=== PATIENT | female | born 1960 | race Caucasian/White ===

== ENCOUNTER 2017-05-11 13:36 | Inpatient (IN) ==
[2017-05-11] MEDS ORDERED: Ipratropium/Albuterol Neb 3 ML IH ONE (14:00)
[2017-05-11] MEDS ORDERED: methylPREDNISolone 125 MG/2 ML VIAL IVP ONE (14:03)
[2017-05-11 14:25] LABS: Basophils % 0.2 %; Hematocrit 41.2 % (35.3-44.9); Hemoglobin 13.6 g/dL (11.5-15.4); Immature Granulocytes % 0.4 % (0-4); Lymphocytes # 0.4 K/mcL (0.6-4.6); Lymphocytes % 4.7 %; Mean Corpuscular Hemoglobin 30.6 pg (28.0-33.3); Mean Corpuscular Volume 92.6 fL (83.0-100.0); Mean Platelet Volume 10.5 fL (9.4-12.4); Monocytes # 0.4 K/mcL (0.0-1.3); Monocytes % 3.9 %; Neutrophils # 8.1 K/mcL (1.6-8.9); Nucleated Red Blood Cells 0.2 /100 WBC (0); Platelet Count 162 K/mcL (140-400); Red Blood Count 4.45 M/mcL (3.82-4.97); Red Cell Distribution Width 14.2 % (11.5-14.5); Segmented Neutrophils % 90.8 %
--- NOTE | 2017-05-11 14:27 | Emergency Department Note ---
Disposition Clinical Impression: Hypoxia Community acquired pneumonia Qualifiers: Laterality: left Lung location: lower lobe of lung Qualified Code(s): J18.1 - Lobar pneumonia, unspecified organism Asthma exacerbation Qualifiers: Asthma severity: unspecified severity Asthma persistence: unspecified Qualified Code(s): J45.901 - Unspecified asthma with (acute) exacerbation Disposition: Admitted As Inpatient Condition: Good SOB HPI - General Chief Complaint: ED Shortness of Breath/Dyspnea Stated Complaint: asthma-RADHA Time Seen by Provider: 05/11/17 13:43 Source: patient Mode of arrival: private vehicle Limitations: no limitations Nursing Notes Reviewed: Yes Vital Signs Reviewed: Yes - History of Present Illness 56-year-old female history of asthma who takes albuterol as well as Symbicort daily who presents to the ER due to shortness of breath and cough. Patient reports symptom onset roughly 2 days ago. States she has been using her inhalers more frequently. She was noted to be hypoxic at home so came in for evaluation. Denies a prior history of admission for her asthma. No history of DVT or PE. No chest pain during this time. Has had a productive cough. No other complaints. Pt Subjective Complaint: shortness of breath, cough Onset (ago): day(s) Context: recent illness Severity: severe Consistency/Duration: constant Improves with: nothing Worsens with: nothing Known history of: asthma Associated symptoms: Reports: fever, cough, wheezing, sputum production. Denies : chest pain Treatment prior to arrival: none Cough present: Yes Cough Description: Involuntary Cough Frequency: Intermittent Sputum production: No Sputum Amount: None - Related Data Home oxygen amount: none Home Medications Medication Instructions Recorded Confirmed Budesonide/Formoterol 160/4.5 1 puff IH BIDR 05/11/17 05/11/17 [Symbicort 160/4.5] Levalbuterol Tartrate 2 puff IH Q4-6H PRN 05/11/17 05/11/17 [Levalbuterol Tartrate Hfa] Lisinopril [Lisinopril] 2.5 mg PO DAILY 05/11/17 05/11/17 Pravastatin Sodium [Pravastatin 10 mg PO DAILY 05/11/17 05/11/17 Sodium] metFORMIN [Glucophage] 500 mg PO BID 05/11/17 05/11/17 Allergies Allergy/AdvReac Type Severity Reaction Status Date / Time aspirin Allergy Difficulty Verified 05/11/17 13:38 Breathing All systems ED: reviewed and negative except as stated. Constitutional: Reports: fever Cardiovascular: Denies: chest pain Respiratory: Reports: cough, dyspnea, sputum production Gastrointestinal: Denies: nausea, vomiting, diarrhea Past Medical History - Past Medical History Attestation: Yes The following information was validated with the patient. Source: patient Medical history: Reports: asthma, diabetes, hypertension Psychiatric history: Reports: no psych history - Social History Smoking Status: Never smoker Smokeless Tobacco Status: No Alcohol use: Reports: none Drug use: Reports: none Physical Exam - General Limitations: no limitations General appearance: alert, in distress - Head Head exam: atraumatic - Eye Eye exam: Present: normal appearance - ENT ENT exam: normal exam - Neck Neck exam: Present: normal inspection, full ROM - Chest Chest inspection: Present: normal inspection, symmetric chest wall rise - Respiratory Respiratory exam: Present: respiratory distress, wheezes (Diffuse end expiratory wheezing with prolonged expiratory phase) - Cardiovascular Cardiovascular exam: Present: normal rhythm, tachycardia, normal heart sounds - Abdominal Exam Abdominal exam: Present: soft, Non-Tender. Absent: tenderness - Extremities Exam Extremities exam: Present: normal inspection, full ROM - Expanded Upper Extremity Exam Shoulder exam: Present: normal inspection, full ROM Arm exam: Present: normal inspection, full ROM Elbow exam: Present: normal inspection, full ROM Forearm/Wrist exam: Present: normal inspection, full ROM Hand exam: Present: normal inspection, full ROM - Expanded Lower Extremity Exam Hip/Pelvis exam: Present: normal inspection, full ROM Upper leg exam: Present: normal inspection, full ROM Knee exam: Present: normal inspection, full ROM Lower leg exam: Present: normal inspection, full ROM Ankle exam: Present: normal inspection, full ROM Foot/toe exam: Present: normal inspection, full ROM - Skin Skin exam: Present: warm, dry, intact Course Course Narrative: Patient seen and examined. Noted to be in respiratory distress and hypoxic. Respiratory therapy called for DuoNeb treatments. I placed the patient on a nonrebreather. Saturations are slowly improving. We will get an EKG, chest x- ray as well as labs including troponin. - Reevaluation(s) Reevaluation #1: Patient continued desaturations after nebulizer treatments. BiPAP ordered. Reevaluation #2: Patient doing better on BiPAP. Currently 97% with an FiO2 of 85%. Discussed findings of imaging. Patient agreeable to staying in the hospital. Vital Signs Temperature 102.9 F H 05/11/17 13:38 Pulse Rate 122 05/11/17 13:38 Respiratory Rate 20 05/11/17 13:38 Blood Pressure 132/72 05/11/17 13:38 O2 Sat by Pulse Oximetry 65 05/11/17 13:38 Temperature 98.8 F 05/11/17 19:32 Pulse Rate 81 05/11/17 19:32 Respiratory Rate 17 05/11/17 19:32 Blood Pressure 110/64 05/11/17 19:32 O2 Sat by Pulse Oximetry 98 05/11/17 19:32 Oxygen Delivery Oxygen Delivery Bipap Shortness of Breath/Dyspnea - MDM Narrative Medical decision making narrative: 56-year-old female presents to the ER due to shortness of breath and cough for 2 days in duration. History of asthma in the past. Noted to be hypoxic upon arrival. She was placed on a nonrebreather with improvement to 91%. EKG shows sinus tachycardia. Chest x-ray with left lower lobe pneumonia. Patient given DuoNeb treatments and Solu-Medrol. Also placed on BiPAP with improvement of her oxygen saturation. She is treated with Rocephin and Zithromax. She is accepted to the hospitalist service for [facility] pneumonia, asthma exacerbation and hypoxia. - Lab Data Lab results reviewed: Yes I reviewed the patient's lab results. Result diagrams: 05/11/17 14:15 05/11/17 14:15 Lab Results 05/11/17 05/11/17 05/11/17 Range/Units 14:15 14:15 14:15 WBC 8.9 (4.3-11.1) K/mcL RBC 4.45 (3.82-4.97) M/mcL Hgb 13.6 (11.5-15.4) g/dL Hct 41.2 (35.3-44.9) % MCV 92.6 (83.0-100.0) fL MCH 30.6 (28.0-33.3) pg MCHC 33.0 (31.6-35.5) g/dL RDW 14.2 (11.5-14.5) % Plt Count 162 (140-400) K/mcL MPV 10.5 (9.4-12.4) fL Immature Gran % 0.4 (0-4) % Seg Neutrophils % 90.8 % Lymphocytes % 4.7 % Monocytes % 3.9 % Eosinophils % 0.0 % Basophils % 0.2 % Neutrophils # 8.1 (1.6-8.9) K/mcL Lymphocytes # 0.4 L (0.6-4.6) K/mcL Monocytes # 0.4 (0.0-1.3) K/mcL Eosinophils # 0.0 (0.0-0.6) K/mcL Basophils # 0.0 (0.0-0.2) K/mcL Nucleated RBCs/100 WBC 0.2 H (0) /100 WBC Sample Site ABG pH (7.32-7.45) pH Units ABG pCO2 (35-45) mmHg ABG pO2 (85-104) mmHg ABG HCO3 (21-27) mEq/L ABG Total CO2 (20-26) mEq/L ABG O2 Saturation (95-98) % ABG Base Excess (-2 to 3) mEq/L Fan Test Respiration Rate O2 Delivery Device Inspired O2 (1-15=lpm [id number]=%) Sodium 134 L (136-145) mEq/L Potassium 4.2 (3.5-5.1) mEq/L Chloride 98 (98-107) mEq/L Carbon Dioxide 31 H (23-29) mEq/L BUN 14 (6-20) mg/dL Creatinine 0.91 (0.60-1.20) mg/dL Est GFR ( Amer) > 60 (> 60) Est GFR (Non-Af Amer) > 60 (> 60) BUN/Creatinine Ratio 15 (6-26) Glucose 195 H (70-105) mg/dL Calculated Osmolality 284 (280-300) Calcium 8.6 (8.6-10.3) mg/dL Troponin I < 0.03 (< 0.04) ng/mL B-Natriuretic Peptide (Less than 100) pg/mL 05/11/17 05/11/17 Range/Units 14:15 18:30 WBC (4.3-11.1) K/mcL RBC (3.82-4.97) M/mcL Hgb (11.5-15.4) g/dL Hct (35.3-44.9) % MCV (83.0-100.0) fL MCH (28.0-33.3) pg MCHC (31.6-35.5) g/dL RDW (11.5-14.5) % Plt Count (140-400) K/mcL MPV (9.4-12.4) fL Immature Gran % (0-4) % Seg Neutrophils % % Lymphocytes % % Monocytes % % Eosinophils % % Basophils % % Neutrophils # (1.6-8.9) K/mcL Lymphocytes # (0.6-4.6) K/mcL Monocytes # (0.0-1.3) K/mcL Eosinophils # (0.0-0.6) K/mcL Basophils # (0.0-0.2) K/mcL Nucleated RBCs/100 WBC (0) /100 WBC Sample Site L Radial ABG pH 7.30 L (7.32-7.45) pH Units ABG pCO2 62 H (35-45) mmHg ABG pO2 109 H (85-104) mmHg ABG HCO3 31 H (21-27) mEq/L ABG Total CO2 33 H (20-26) mEq/L ABG O2 Saturation 98 (95-98) % ABG Base Excess 3 (-2 to 3) mEq/L Fan Test Positive Respiration Rate 8 O2 Delivery Device BiPAP Inspired O2 60.0 (1-15=lpm [id number]=%) Sodium (136-145) mEq/L Potassium (3.5-5.1) mEq/L Chloride (98-107) mEq/L Carbon Dioxide (23-29) mEq/L BUN (6-20) mg/dL Creatinine (0.60-1.20) mg/dL Est GFR ( Amer) (> 60) Est GFR (Non-Af Amer) (> 60) BUN/Creatinine Ratio (6-26) Glucose (70-105) mg/dL Calculated Osmolality (280-300) Calcium (8.6-10.3) mg/dL Troponin I (< 0.04) ng/mL B-Natriuretic Peptide 69 (Less than 100) pg/mL - Radiology Data Radiology results reviewed: Yes I reviewed the patient's radiology results. Chest X-Ray 05/11/17 14:04 IMPRESSION: Consolidated pneumonia in the left base. RECOMMENDATION: Follow-up until resolution is recommended. D/ / Daren iDaz MD / Daren Diaz MD Interpreting Provider: Daren Diaz MD - EKG Data EKG attestation: Yes I reviewed and interpreted this EKG. EKG results narrative: EKG demonstrates sinus tachycardia with rate of 109. Normal axis. Normal intervals. Poor R-wave progression. No gross ST elevations or depressions. ischemic findings. S.B.A.R. - S.B.A.R. Situation: Demographics, MOA Background: Presenting Complaint, Relevant PMH, Meds, & Allergies Assessment: Vital Signs, Course and respsone to treatment, Exam Concerns, Patient/Family Expectation Recommendation: Barrier(s) to disposition, Recommendation based on pending studies, treatments, or consults S.B.A.RPuneet Report Given to: Dr. Dot Traore Repor Time: 17:51 (Request ABG) Attestation Statement - Attestation Attestation: I examined this patient and my medical decision-making was reviewed with the Resident Physician. I agree with the documented findings, disposition and treatment plan as described except to the extent set forth below. 56-year-old female presents because of difficulty breathing and fever. She says symptoms evolving for the past 2 days including dyspnea, fever and cough productive of thick green sputum. No complains of pain. No abdominal pain or vomiting. No dysuria, hematuria. No joint pain or myalgias. No dysuria or no recent known ill exposures. Obese female in moderate respiratory distress. She is tachypneic and hypoxic. Oropharynx is clear moist membranes are dry. Neck is supple trachea midline. Chest with markedly diminished breath sounds throughout with biphasic wheezes in all lung pérez. Cardiac exam is tachycardic, regular. Abdomen soft, nondistended nontender. She weighs warm and dry with bilateral edema but no calf tenderness. She required high flow supplemental oxygen to maintain oxygen saturation 91%. She was given sequential DuoNeb treatments with some improvement. She received IV Solu-Medrol and a dose of IV magnesium with further improvement but still can required high flow oxygen. She was subsequently started on BiPAP for supportive care. On BiPAP with 60% FiO2 her pH is 7.30 with a PCO2 of 62. Chest x-ray was consistent with a dense left lower lobe pneumonia. She was started on Rocephin and Zithromax for community where pneumonia. She will be admitted for ongoing treatment and supportive care The high probability of a clinically significant, sudden or life threatening deterioration of the [cardiopulmonary] system(s) required my full and direct attention, intervention and personal management. The aggregate critical care time was [40] minutes. This time is in addition to time spent performing reported procedures but includes the following: [x] Data Review and interpretation [x] Patient assessment and monitoring of vital signs [x] Documentation [x] Medication orders and management
[2017-05-11 14:38] LABS: BUN/Creatinine Ratio 15 (6-26); Blood Urea Nitrogen 14 mg/dL (6-20); Calcium 8.6 mg/dL (8.6-10.3); Carbon Dioxide 31 mEq/L (23-29); Chloride 98 mEq/L (98-107); Glucose 195 mg/dL (70-105); Osmolality,Calculated 284 (280-300); Potassium 4.2 mEq/L (3.5-5.1); Sodium 134 mEq/L (136-145); eGFR For African Americans > 60 (> 60); eGFR For Non-African Americans > 60 (> 60)
[2017-05-11] MEDS ORDERED: Azithromycin 500 MG in D5% in Water 250 ML IVPB ONE (16:32)
[2017-05-11] MEDS ORDERED: cefTRIAXone 1,000 MG in Water for inj. (sterile) 20 ML 10 ML IVP ONE (16:32)
[2017-05-11] MEDS ORDERED: 0.9 % Sodium Chloride 1,000 ML IVC ONE (17:52)
[2017-05-11 18:33] LABS: ABG Base Excess 3 mEq/L (-2 to 3); ABG HCO3 31 mEq/L (21-27); ABG Oxygen Saturation 98 % (95-98); ABG PCO2 62 mmHg (35-45); ABG PO2 109 mmHg (85-104); ABG TCO2 33 mEq/L (20-26); Blood Gas Respiration Rate 8
[2017-05-11] MEDS ORDERED: Naloxone 0.4 MG/ML INJ IVP PRN (21:18)
[2017-05-11] MEDS ORDERED: D5% in Water 1,000 ML IVC PRN (21:18)
[2017-05-11] MEDS ORDERED: Dextrose Gel 15 GM/37.5 ML TUBE PO PRN ×2 (21:18)
[2017-05-11] MEDS ORDERED: *HR* Dextrose 50 % in Water (Syg) 50 ML SYRINGE IVP PRN (21:18)
--- NOTE | 2017-05-11 21:23 | Internal Med History&Physical ---
<Lauri Mancilla J - Last Filed: 05/11/17 22:41> Date of Encounter: 05/11/17 Time of Encounter: 21:21 Assessment and Plan (1) Community acquired pneumonia Current visit: Yes Status: Acute She presented today with severe hypoxia with his PO2 of 65% and dyspnea. The Patient is a nonsmoker with a history of asthma. She reports that for the last couple of days has been feeling very fatigued and short of breath. She reports that yesterday she was severely dyspneic with exertion and her cough became more coarse with increased sputum production. He denies any recent hospitalizations or antibiotics within the last 90 days. Chest x-ray reveals left lobe consolidation consistent with PNA. She is being admitted as inpatient for treatment of CAP. Currently she is resting comfortably on BiPAP and states that she does not feel short of breath that she did upon arrival. She is currently on 60% FiO2 and maintaining O2 saturations greater than 92%. Initial ABG upon arrival showed respiratory acidosis with hypercapnia. - Send urine Legionella antigen - Aerosols q 4 hr and PRN SOB - Solu-medrol 40 mg IV q 6 hr - O2 to keep SpO2 higher than 92% - CBCD, BMP in AM - Sputum Gram stain, C+S - Tylenol 650 mg PO q 4-6 hr PRN pain/fever - Heparin 5000 U SQ BID - Azithromycin 500 IV piggyback daily, ceftriaxone 1 g IV piggyback daily -Wean patient to nasal cannula as clinically appropriate - Obtain ABG Qualifiers: Laterality: left Lung location: lower lobe of lung Qualified Code(s): J18.1 - Lobar pneumonia, unspecified organism (2) Asthma exacerbation Current visit: Yes Status: Acute Presents today with severe hypoxia and dyspnea, secondary to pneumonia. Pulmonary assessment the patient has rhonchi throughout bilateral bases as well as inspiratory and expiratory wheezing. While in the emergency department she received duonebs, IV steroids and was placed on a BiPAP at 60% FiO2. Respiratory status seems to have improved. Patient remains on BiPAP and is resting comfortably at this time and tolerating the BiPAP well. - Aerosols q 4 hr and PRN SOB - Solu-medrol 40 mg IV q 6 hr - O2 to keep SpO2 higher than 92% - CBCD, BMP in AM - Sputum Gram stain, C+S - Tylenol 650 mg PO q 4-6 hr PRN pain/fever - Heparin 5000 U SQ BID - Azithromycin 500 IV piggyback daily, ceftriaxone 1 g IV piggyback daily -Wean patient to nasal cannula as clinically appropriate Qualifiers: Asthma severity: unspecified severity Asthma persistence: unspecified Qualified Code(s): J45.901 - Unspecified asthma with (acute) exacerbation (3) Acute respiratory failure with hypercapnia Current visit: Yes Status: Acute Acute respiratory failure secondary to pneumonia. Patient was hypoxic and also experiencing an acute exacerbation of asthma. ABG revealed respiratory acidosis and hypercapnia. (4) Hypoxia Current visit: Yes Status: Acute Patient arrived to [facility] with severe hypoxia with an SPO2 of 65% and dyspnea. She was immediately placed on a nonrebreather with SPO2 improving to 94% on 100 % oxygen. Patient has a history of asthma and appears to have been in an acute exacerbation, chest x-ray was obtained and revealed a consolidation in the left lung base. See plan above (5) Diabetes Current visit: Yes Status: Acute Discontinue oral hypoglycemics while inpatient and start patient on low sliding scale insulin coverage with before meals and at bedtime Accu-Cheks and diabetic/ cardiac diet Qualifiers: Diabetes mellitus type: type 2 Diabetes mellitus complication status: without complication Diabetes mellitus intermodal customer service insulin use: without retirement use Qualified Code(s): E11.9 - Type 2 diabetes mellitus without complications (6) DVT prophylaxis Current visit: Yes Status: Acute Heparin 5000 units subcutaneous twice a day Internal Medicine - H&P: HPI Chief complaint: dyspnea, hypoxia Admitted From: Home Plans for Post Hospital Care: Home History of present illness: Ms. Gill is a 56 year old female with a PMH of HTN, asthma and DM. She presents to [facility] today d/t dyspnea, and a productive cough. She reports the onset of symptoms of approximately 2-days ago. She admits to fevers, a course cough with a large amount of dark sputum. Additionally, she reports that she has had to increase her inhaler use. Upon arrival to the ED she was hypoxic with an SPO2 of 65% and required a 100% NRB to maintain O2 saturations greater than 92%. She was found to be in respiratory acidosis and hypercapnea and was placed on a Bipap. CXR shows a LLL consolidation consistent with PNA. Past Med Surg Social Fam HX - Past Medical History Medical history: asthma, diabetes, hyperlipidemia, hypertension Psychiatric history: no psych history - Past Surgical History Surgical History: , cholecystectomy - Social History Smoking Status: Never smoker Smokeless Tobacco Status: No Alcohol use: none Drug use: none - Family History Mother Hx Family Endocrine Disorder: Yes (DM) Brother Hx Family Cancer: Yes (LEUKEMIA) Internal Medicine - H&P: Meds Budesonide/Formoterol 160/4.5 [Symbicort 160/4.5] 1 puff IH BIDR 05/11/17 [ History] Levalbuterol Tartrate [Levalbuterol Tartrate Hfa] 2 puff IH Q4-6H PRN 05/11/17 [ History] Lisinopril [Lisinopril] 2.5 mg PO DAILY 05/11/17 [History] Pravastatin Sodium [Pravastatin Sodium] 10 mg PO DAILY 05/11/17 [History] metFORMIN [Glucophage] 500 mg PO BID 05/11/17 [History] 3 Allergy/AdvReac Type Severity Reaction Status Date / Time aspirin Allergy Difficulty Verified 05/11/17 13:38 Breathing All Systems PM: A 10-system review of systems was performed and is negative for pertinent findings except as documented above in the HPI. Review of systems: REVIEW OF SYSTEMS GENERAL: Negative for any nausea, vomiting, fevers, or weight loss. Positive for fevers NEUROLOGIC: Negative for any blurry vision, blind spots, double vision, facial asymmetry, dysphagia, dysarthria, hemiparesis, hemisensory deficits, vertigo, ataxia. HEENT: Negative for any head trauma, neck trauma, neck stiffness, photophobia, phonophobia, sinusitis, rhinitis. CARDIAC: Negative for any chest pain, paroxysmal nocturnal dyspnea, peripheral edema. PULMONARY: Negative for COPD. Positive for a productive course cough, dyspnea , wheezing and ashthma exacerbation GASTROINTESTINAL: Negative for any abdominal pain, nausea, vomiting, bright red blood per rectum, melena. GENITOURINARY: Negative for any dysuria, hematuria, incontinence. INTEGUMENTARY: Negative for any rashes, cuts, insect bites. RHEUMATOLOGIC: Negative for any joint pains, photosensitive rashes, history of vasculitis or kidney problems. HEMATOLOGIC: Negative for any abnormal bruising, frequent infections or bleeding. - Constitutional Vitals: Temp Pulse Resp BP Pulse Ox 98.8 F 81 17 110/64 98 05/11/17 19:32 05/11/17 19:32 05/11/17 19:32 05/11/17 19:32 05/11/17 20:24 General appearance: Present: cooperative, mild distress, A&O X 3, answers questions appropriately - Head Head exam: Present: atraumatic, normocephalic - Eye Eye exam: Present: PERRL, conjuntiva pink, sclera anicteric Pupils: Present: PERRL - Neck Neck exam general surgery: Present: supple, trachea midline. Absent: lymphadenopathy - Respiratory Respiratory exam: Present: decreased breath sounds, prolonged expiratory phase, respiratory distress (MILD), rhonchi, wheezes (I&E). Absent: chest wall tenderness - Cardiovascular Cardiovascular exam: Present: RRR, +S1, +S2. Absent: bradycardia, diastolic murmur, gallop, irregular rhythm, JVD, rubs, systolic murmur, tachycardia - GI/Abdominal GI/Abdominal exam: Present: normal bowel sounds, soft, no peritoneal signs. Absent: distended, tenderness - Extremities Exam Extremities exam: Present: warm, radial pulses palpable and symmetrical. Absent : calf tenderness, cyanotic, pedal edema - Neurological Exam Neurological exam: Present: normal gait, oriented X3 - Skin Skin exam: Present: dry, intact Internal Med - H&P Results - Labs CBC & Chem 7: 05/11/17 14:15 05/11/17 14:15 - Diagnostic Studies Chest x-ray Status: image reviewed by me Additional comments: Consolidation in Left lung base <Addie Baca - Last Filed: 05/12/17 05:53> Date of Encounter: 05/11/17 Time of Encounter: 23:05 Internal Medicine - H&P: HPI History of present illness: Ms. Gill is a 56 year old female All Systems PM: A 10-system review of systems was performed and is negative for pertinent findings except as documented above in the HPI. - Constitutional Vitals: Temp Pulse Resp BP Pulse Ox 97.9 F 70 16 130/75 91 05/12/17 00:00 05/12/17 00:00 05/12/17 00:17 05/12/17 00:00 05/12/17 00:17 Internal Med - H&P Results - Labs CBC & Chem 7: 05/12/17 04:13 05/12/17 04:13 Labs: Short CBC 05/12/17 Range/Units 04:13 WBC 11.6 H (4.3-11.1) K/mcL Hgb 12.4 (11.5-15.4) g/dL Hct 38.7 (35.3-44.9) % Plt Count 124 L (140-400) K/mcL Neutrophils # 10.9 H (1.6-8.9) K/mcL BMP 05/12/17 04:13 Sodium 135 L Potassium 4.7 Chloride 99 Carbon Dioxide 33 H BUN 12 Creatinine 0.90 Glucose 211 H Calcium 8.5 L - ABG Interpretation ABG results: 05/11/17 05/12/17 23:27 05:14 ABG pH 7.24 L 7.32 ABG pCO2 76 H* 65 H ABG pO2 155 H D 98 D ABG HCO3 32 H 34 H ABG Total CO2 35 H 36 H ABG O2 Saturation 99 H 97 ABG Base Excess 2 5 H - Attending Attestation Patient is a 56y/o female admitted for acute respiratory failure secondary to pneumonia and asthma exacerbation. Patient was found to be Inflluenza and Coronavirus positive. Reported of symptoms starting two days prior to her hospitalization. Pt noted to have worsening ABG. She was started on Tamiflu, Vanco, and Zosyn given severe respiratory distress continue bipap support f/u blood cultures will repeat ABG in am Patient was independently seen and examined at bedside. Case was discussed with ZAID Mancilla, I agree with his documented findings, assessment, and plan except as listed above.
[2017-05-11 21:49] LABS: Adenovirus Not Detected (Not Detect); Bordetella Pertussis Not Detected (Not Detect); Chlamydophila pneumoniae Not Detected (Not Detect); Coronavirus 229E Not Detected (Not Detect); Coronavirus HKU1 ***DETECTED*** (Not Detect); Coronavirus NL63 Not Detected (Not Detect); Coronavirus OC43 Not Detected (Not Detect); Human Metapneumovirus Not Detected (Not Detect); Human Rhinovirus/Enterovirus Not Detected (Not Detect); Influenza A Subtype 2009 H1 Not Detected (Not Detect); Influenza A Untypeable Not Detected (Not Detect); Influenza B Not Detected (Not Detect); Mycoplasma pneumoniae Not Detected (Not Detect); Parainfluenza Virus 1 Not Detected (Not Detect); Parainfluenza Virus 2 Not Detected (Not Detect); Parainfluenza Virus 3 Not Detected (Not Detect); Parainfluenza Virus 4 Not Detected (Not Detect); Respiratory Syncytial Virus Not Detected (Not Detect)
[2017-05-11] MEDS ORDERED: Acetaminophen 325 MG TABLET PO PRN (22:03)
[2017-05-11] MEDS: Ipratropium/Albuterol Neb 3 ML IH SCH (23:22)
[2017-05-11] MEDS: Insulin LISPRO 300 UNITS/3 ML VIAL SQ SCH (23:29)
[2017-05-11] MEDS: methylPREDNISolone 125 MG/2 ML VIAL IVP SCH (23:30)
[2017-05-11 23:33] LABS: ABG Base Excess 2 mEq/L (-2 to 3); ABG HCO3 32 mEq/L (21-27); ABG Oxygen Saturation 99 % (95-98); ABG PCO2 76 mmHg (35-45); ABG PH 7.24 pH Units (7.32-7.45); ABG PO2 155 mmHg (85-104); ABG TCO2 35 mEq/L (20-26)
[2017-05-12] MEDS: 0.9 % Sodium Chloride 1,000 ML IVC SCH ×2 (00:38→17:51)
[2017-05-12] MEDS ORDERED: Vancomycin 1,500 MG in D5% in Water 250 ML IVPB ONE (01:00)
[2017-05-12] MEDS ORDERED: Vancomycin 1,000 MG in D5% in Water 250 ML IVPB SCH ×2 (01:00→13:00)
[2017-05-12] MEDS: Piperacillin/Tazobactam 3.375 GM/200 ML BAG IVPB SCH ×2 (01:19→08:38)
[2017-05-12] MEDS: Ipratropium/Albuterol Neb 3 ML IH SCH ×6 (03:29→23:31)
[2017-05-12 05:11] LABS: Hematocrit 38.7 % (35.3-44.9); Hemoglobin 12.4 g/dL (11.5-15.4); Mean Corpuscular Hemoglobin 30.4 pg (28.0-33.3); Mean Corpuscular Volume 94.9 fL (83.0-100.0); Mean Platelet Volume 11.1 fL (9.4-12.4); Platelet Count 124 K/mcL (140-400); Red Blood Count 4.08 M/mcL (3.82-4.97); Red Cell Distribution Width 14.4 % (11.5-14.5)
[2017-05-12 05:18] LABS: ABG Base Excess 5 mEq/L (-2 to 3); ABG HCO3 34 mEq/L (21-27); ABG Oxygen Saturation 97 % (95-98); ABG PCO2 65 mmHg (35-45); ABG PH 7.32 pH Units (7.32-7.45); ABG PO2 98 mmHg (85-104); ABG TCO2 36 mEq/L (20-26); Blood Gas Modality BiLevel
[2017-05-12 05:30] LABS: BUN/Creatinine Ratio 13 (6-26); Blood Urea Nitrogen 12 mg/dL (6-20); Calcium 8.5 mg/dL (8.6-10.3); Carbon Dioxide 33 mEq/L (23-29); Chloride 99 mEq/L (98-107); Glucose 211 mg/dL (70-105); Osmolality,Calculated 286 (280-300); Potassium 4.7 mEq/L (3.5-5.1); Sodium 135 mEq/L (136-145); eGFR For African Americans > 60 (> 60); eGFR For Non-African Americans > 60 (> 60)
[2017-05-12] MEDS: *HR* Heparin 5,000 UNIT/ML VIAL SQ SCH ×2 (05:41→18:32)
[2017-05-12] MEDS: methylPREDNISolone 125 MG/2 ML VIAL IVP SCH ×4 (05:44→23:33)
[2017-05-12 05:48] LABS: Large Platelets Present (Not Present); Lymphocytes # 0.2 K/mcL (0.6-4.6); Monocytes # 0.5 K/mcL (0.0-1.3); Neutrophils # 10.9 K/mcL (1.6-8.9); Platelet Estimate Slight Decrease (Normal)
[2017-05-12] MEDS ORDERED: Aminoglycoside Consult 1 EACH MC ONE (07:56)
[2017-05-12] MEDS: Insulin LISPRO 300 UNITS/3 ML VIAL SQ SCH ×4 (08:38→22:16)
[2017-05-12] MEDS ORDERED: cefTRIAXone 1,000 MG in Water for inj. (sterile) 20 ML 10 ML IVP SCH (09:00)
[2017-05-12] MEDS ORDERED: Azithromycin 250 MG TABLET PO SCH (09:00)
--- NOTE | 2017-05-12 11:10 | Internal Med Progress Note ---
Date of Encounter: 05/12/17 Time of Encounter: 11:08 - Assessment and plan (1) Acute respiratory failure with hypoxia and hypercapnia Current Visit: Yes Status: Acute Assessment and plan: Acute hypoxic hypercapnic respiratory failure with acute respiratory acidosis secondary to acute COPD/asthma exacerbation due to sepsis from community- acquired pneumonia/unknown agent and also viral infections of influenza A (H3) and coronavirus HKU1 Tamiflu Discontinue vancomycin and Zosyn Restart Rocephin and azithromycin Continue Solu-Medrol IV, DuoNeb nebs, oxygen therapy Chest x-ray showed a left lower lobe opacity. Had a pH of 7.24 PCO2 of 76 and a PO2 of 55. Was found to have a saturation of oxygen of 65% High risk due to respiratory failure (2) Acute respiratory acidosis Current Visit: Yes Status: Acute (3) Sepsis Current Visit: Yes Status: Acute Qualifiers: Sepsis type: sepsis due to unspecified organism Qualified Code(s): A41.9 - Sepsis, unspecified organism (4) Community acquired pneumonia Current Visit: Yes Status: Acute Qualifiers: Laterality: left Lung location: lower lobe of lung Qualified Code(s): J18.1 - Lobar pneumonia, unspecified organism (5) Hypoxia Current Visit: Yes Status: Acute (6) Asthma exacerbation Current Visit: Yes Status: Acute Qualifiers: Asthma severity: unspecified severity Asthma persistence: unspecified Qualified Code(s): J45.901 - Unspecified asthma with (acute) exacerbation (7) Diabetes Current Visit: Yes Status: Acute Assessment and plan: Insulin sliding scale Qualifiers: Diabetes mellitus type: type 2 Diabetes mellitus complication status: without complication Diabetes mellitus superintendent terminal insulin use: without mcfp use Qualified Code(s): E11.9 - Type 2 diabetes mellitus without complications - Subjective Interval history: Feeling still very short of breath, was complaining of having dark fling yesterday but is turning reddish, left chest pain only when she coughs, denies any abdominal pain, dysuria, has some nausea but has not vomited. Had a fever 102.9 upon admission - Constitutional Vitals: Temp Pulse Resp BP Pulse Ox 97.9 F 69 16 134/82 96 05/12/17 06:54 05/12/17 06:54 05/12/17 07:46 05/12/17 06:54 05/12/17 07:46 General appearance: Present: cooperative, mild distress, A&O X 3, answers questions appropriately - Head Head exam: Present: atraumatic, normocephalic - Eye Eye exam: Present: PERRL, conjuntiva pink, sclera anicteric Pupils: Present: PERRL - Neck Neck exam general surgery: Present: supple, trachea midline. Absent: lymphadenopathy - Respiratory Respiratory exam: Present: CTAB, rales, wheezes (Diffuse crackles and wheezing) . Absent: accessory muscle use, rhonchi - Cardiovascular Cardiovascular exam: Present: RRR, +S1, +S2. Absent: diastolic murmur, gallop, rubs, systolic murmur - GI/Abdominal GI/Abdominal exam: Present: normal bowel sounds, soft, no peritoneal signs. Absent: distended, tenderness - Extremities Exam Extremities exam: Present: warm, radial pulses palpable and symmetrical. Absent : calf tenderness, cyanotic, pedal edema - Neurological Exam Neurological exam: Present: CN II-XII intact, oriented X3, no focal deficits. Absent: pronater drift, facial droop, speech deficit - Skin Skin exam: Present: dry, intact Internal Medicine: Result - Labs CBC & Chem 7: 05/12/17 04:13 05/12/17 04:13 Labs: Short CBC 05/12/17 Range/Units 04:13 WBC 11.6 H (4.3-11.1) K/mcL Hgb 12.4 (11.5-15.4) g/dL Hct 38.7 (35.3-44.9) % Plt Count 124 L (140-400) K/mcL Neutrophils # 10.9 H (1.6-8.9) K/mcL BMP 05/12/17 04:13 Sodium 135 L Potassium 4.7 Chloride 99 Carbon Dioxide 33 H BUN 12 Creatinine 0.90 Glucose 211 H Calcium 8.5 L - ABG Interpretation ABG results: ABG ABG pH 7.32 pH Units (7.32-7.45) 05/12/17 05:14 ABG pCO2 65 mmHg (35-45) H 05/12/17 05:14 ABG pO2 98 mmHg (85-104) D 05/12/17 05:14 ABG O2 Saturation 97 % (95-98) 05/12/17 05:14 Consult Discharge Plan - Plan Referrals: Josias Jc MD [Primary Care Provider] -
[2017-05-12] MEDS: cefTRIAXone 2,000 MG in Water for inj. (sterile) 20 ML IVP SCH (12:12)
[2017-05-12] MEDS: Azithromycin 250 MG TABLET PO SCH (12:12)
[2017-05-13] MEDS: Ipratropium/Albuterol Neb 3 ML IH SCH ×6 (03:43→23:37)
[2017-05-13] MEDS: methylPREDNISolone 125 MG/2 ML VIAL IVP SCH ×2 (05:43→12:26)
[2017-05-13] MEDS: *HR* Heparin 5,000 UNIT/ML VIAL SQ SCH ×2 (05:46→17:25)
[2017-05-13] MEDS: 0.9 % Sodium Chloride 1,000 ML IVC SCH ×2 (07:11→21:36)
[2017-05-13] MEDS: Insulin LISPRO 300 UNITS/3 ML VIAL SQ SCH ×4 (12:25→21:37)
[2017-05-13] MEDS: Azithromycin 250 MG TABLET PO SCH (12:26)
[2017-05-13] MEDS: cefTRIAXone 2,000 MG in Water for inj. (sterile) 20 ML IVP SCH (12:26)
--- NOTE | 2017-05-13 13:34 | Internal Med Progress Note ---
Date of Encounter: 05/13/17 Time of Encounter: 13:32 - Assessment and plan (1) Acute respiratory failure with hypoxia and hypercapnia Current Visit: Yes Status: Acute Assessment and plan: Acute hypoxic hypercapnic respiratory failure with acute respiratory acidosis secondary to acute COPD/asthma exacerbation due to sepsis from community- acquired pneumonia/unknown agent and also viral infections of influenza A (H3) and coronavirus HKU1 Tamiflu day #2 Discontinued vancomycin and Zosyn Rocephin and azithromycin day #2 Continue Solu-Medrol IV, DuoNeb nebs, oxygen therapy Chest x-ray showed a left lower lobe opacity. Had a pH of 7.24 PCO2 of 76 and a PO2 of 55. Was found to have a saturation of oxygen of 65% High risk due to respiratory failure (2) Acute respiratory acidosis Current Visit: Yes Status: Acute (3) Sepsis Current Visit: Yes Status: Acute Qualifiers: Sepsis type: sepsis due to unspecified organism Qualified Code(s): A41.9 - Sepsis, unspecified organism (4) Community acquired pneumonia Current Visit: Yes Status: Acute Qualifiers: Laterality: left Lung location: lower lobe of lung Qualified Code(s): J18.1 - Lobar pneumonia, unspecified organism (5) Hypoxia Current Visit: Yes Status: Acute (6) Asthma exacerbation Current Visit: Yes Status: Acute Qualifiers: Asthma severity: unspecified severity Asthma persistence: unspecified Qualified Code(s): J45.901 - Unspecified asthma with (acute) exacerbation (7) Diabetes Current Visit: Yes Status: Acute Assessment and plan: Insulin sliding scale Qualifiers: Diabetes mellitus type: type 2 Diabetes mellitus complication status: without complication Diabetes mellitus usp insulin use: without machine long goods helper use Qualified Code(s): E11.9 - Type 2 diabetes mellitus without complications - Subjective Interval history: still short of breath, was complaining of having dark phlegm the day before yesterday but is turning reddish, left chest pain only when she coughs, denies any abdominal pain, dysuria, has some nausea but has not vomited. Had a fever 102.9 upon admission - Constitutional Vitals: Temp Pulse Resp BP Pulse Ox 97.7 F 80 16 128/74 91 05/13/17 10:00 05/13/17 10:00 05/13/17 11:01 05/13/17 10:00 05/13/17 11:01 General appearance: Present: cooperative, mild distress, A&O X 3, answers questions appropriately - Head Head exam: Present: atraumatic, normocephalic - Eye Eye exam: Present: PERRL, conjuntiva pink, sclera anicteric Pupils: Present: PERRL - Neck Neck exam general surgery: Present: supple, trachea midline. Absent: lymphadenopathy - Respiratory Respiratory exam: Present: CTAB, wheezes (Diffuse wheezing). Absent: accessory muscle use, rales, rhonchi - Cardiovascular Cardiovascular exam: Present: RRR, +S1, +S2. Absent: diastolic murmur, gallop, rubs, systolic murmur - GI/Abdominal GI/Abdominal exam: Present: normal bowel sounds, soft, no peritoneal signs. Absent: distended, tenderness - Extremities Exam Extremities exam: Present: warm, radial pulses palpable and symmetrical. Absent : calf tenderness, cyanotic, pedal edema - Neurological Exam Neurological exam: Present: CN II-XII intact, oriented X3, no focal deficits. Absent: pronater drift, facial droop, speech deficit - Skin Skin exam: Present: dry, intact Internal Medicine: Result - Labs CBC & Chem 7: 05/12/17 04:13 05/12/17 04:13 - ABG Interpretation ABG results: ABG ABG pH 7.32 pH Units (7.32-7.45) 05/12/17 05:14 ABG pCO2 65 mmHg (35-45) H 05/12/17 05:14 ABG pO2 98 mmHg (85-104) D 05/12/17 05:14 ABG O2 Saturation 97 % (95-98) 05/12/17 05:14 Consult Discharge Plan - Plan Referrals: Josias Jc MD [Primary Care Provider] -
[2017-05-13] MEDS: MethylPREDNISolone 40 MG/ML VIAL IVP SCH ×2 (17:25→21:38)
[2017-05-14] MEDS: Ipratropium/Albuterol Neb 3 ML IH SCH ×6 (04:14→23:54)
[2017-05-14] MEDS: *HR* Heparin 5,000 UNIT/ML VIAL SQ SCH ×2 (06:00→16:43)
[2017-05-14] MEDS: Azithromycin 250 MG TABLET PO SCH (09:12)
[2017-05-14] MEDS: MethylPREDNISolone 40 MG/ML VIAL IVP SCH ×3 (09:12→20:24)
[2017-05-14] MEDS: Insulin LISPRO 300 UNITS/3 ML VIAL SQ SCH ×4 (09:13→22:15)
--- NOTE | 2017-05-14 10:07 | Internal Med Progress Note ---
Date of Encounter: 05/14/17 Time of Encounter: 10:05 - Assessment and plan (1) Acute respiratory failure with hypoxia and hypercapnia Current Visit: Yes Status: Acute Assessment and plan: Acute hypoxic hypercapnic respiratory failure with acute respiratory acidosis secondary to acute COPD/asthma exacerbation due to sepsis from community- acquired pneumonia/unknown agent and also viral infections of influenza A (H3) and coronavirus HKU1 Tamiflu day #3 Discontinued vancomycin and Zosyn Rocephin and azithromycin day #3 Continue Solu-Medrol IV, DuoNeb nebs, oxygen therapy Chest x-ray showed a left lower lobe opacity. Had a pH of 7.24 PCO2 of 76 and a PO2 of 55. Was found to have a saturation of oxygen of 65% High risk due to respiratory failure (2) Acute respiratory acidosis Current Visit: Yes Status: Acute (3) Sepsis Current Visit: Yes Status: Acute Qualifiers: Sepsis type: sepsis due to unspecified organism Qualified Code(s): A41.9 - Sepsis, unspecified organism (4) Community acquired pneumonia Current Visit: Yes Status: Acute Qualifiers: Laterality: left Lung location: lower lobe of lung Qualified Code(s): J18.1 - Lobar pneumonia, unspecified organism (5) Hypoxia Current Visit: Yes Status: Acute (6) Asthma exacerbation Current Visit: Yes Status: Acute Qualifiers: Asthma severity: unspecified severity Asthma persistence: unspecified Qualified Code(s): J45.901 - Unspecified asthma with (acute) exacerbation (7) Diabetes Current Visit: Yes Status: Acute Assessment and plan: Insulin sliding scale Qualifiers: Diabetes mellitus type: type 2 Diabetes mellitus complication status: without complication Diabetes mellitus intermediate insulin use: without continuous churn buttermaker use Qualified Code(s): E11.9 - Type 2 diabetes mellitus without complications - Subjective Interval history: Still requiring 4 L of oxygen, wheezing loudly,still short of breath, was complaining of having dark phlegm the day before yesterday but is turning reddish, left chest pain only when she coughs, denies any abdominal pain, dysuria, has some nausea but has not vomited. Had a fever 102.9 upon admission - Constitutional Vitals: Temp Pulse Resp BP Pulse Ox 97.8 F 92 17 131/62 95 05/14/17 06:49 05/14/17 06:49 05/14/17 06:49 05/14/17 06:49 05/14/17 06:49 General appearance: Present: cooperative, mild distress, A&O X 3, answers questions appropriately - Head Head exam: Present: atraumatic, normocephalic - Eye Eye exam: Present: PERRL, conjuntiva pink, sclera anicteric Pupils: Present: PERRL - Neck Neck exam general surgery: Present: supple, trachea midline. Absent: lymphadenopathy - Respiratory Respiratory exam: Present: CTAB, wheezes (Diffuse wheezing). Absent: accessory muscle use, rales, rhonchi - Cardiovascular Cardiovascular exam: Present: RRR, +S1, +S2. Absent: diastolic murmur, gallop, rubs, systolic murmur - GI/Abdominal GI/Abdominal exam: Present: normal bowel sounds, soft, no peritoneal signs. Absent: distended, tenderness - Extremities Exam Extremities exam: Present: warm, radial pulses palpable and symmetrical. Absent : calf tenderness, cyanotic, pedal edema - Neurological Exam Neurological exam: Present: CN II-XII intact, oriented X3, no focal deficits. Absent: pronater drift, facial droop, speech deficit - Skin Skin exam: Present: dry, intact Internal Medicine: Result - Labs CBC & Chem 7: 05/12/17 04:13 05/12/17 04:13 - ABG Interpretation ABG results: ABG ABG pH 7.32 pH Units (7.32-7.45) 05/12/17 05:14 ABG pCO2 65 mmHg (35-45) H 05/12/17 05:14 ABG pO2 98 mmHg (85-104) D 05/12/17 05:14 ABG O2 Saturation 97 % (95-98) 05/12/17 05:14 Consult Discharge Plan - Plan Referrals: Josias Jc MD [Primary Care Provider] -
[2017-05-14] MEDS: 0.9 % Sodium Chloride 1,000 ML IVC SCH (11:18)
[2017-05-14] MEDS: cefTRIAXone 2,000 MG in Water for inj. (sterile) 20 ML IVP SCH (11:20)
--- NOTE | 2017-05-14 15:48 | Electrocardiograph Report ---
[place] [id number] Test Date: 2017-05-11 Pat Name: Bárbara Gill Department: 103 Room: 2NE23 Gender: F [employer] Supervisor: RAY : [id number] Requested By: Jhonathan Chavira Order Number: [id number] Reading MD: Crystal Mansfield Measurements Intervals [place] Rate: 109 P: 73 AL: 128 QRS: 43 QRSD: 90 T: 63 QT: 316 QTc: 380 Interpretive Statements SINUS TACHYCARDIA ABNORMAL RHYTHM ECG Electronically Signed On 05-14-2017 15:46:57 EST by Crystal Mansfield
[2017-05-15] MEDS: Ipratropium/Albuterol Neb 3 ML IH SCH ×6 (03:42→23:41)
[2017-05-15] MEDS: *HR* Heparin 5,000 UNIT/ML VIAL SQ SCH ×2 (05:16→18:03)
[2017-05-15 07:54] LABS: Hematocrit 35.7 % (35.3-44.9); Hemoglobin 11.4 g/dL (11.5-15.4); Immature Platelets 4.3 % (1.1-6.1); Mean Corpuscular HGB Conc 31.9 g/dL (31.6-35.5); Mean Corpuscular Hemoglobin 30.2 pg (28.0-33.3); Mean Corpuscular Volume 94.4 fL (83.0-100.0); Mean Platelet Volume 10.7 fL (9.4-12.4); Red Blood Count 3.78 M/mcL (3.82-4.97); Red Cell Distribution Width 14.1 % (11.5-14.5)
[2017-05-15 08:06] LABS: BUN/Creatinine Ratio 24 (6-26); Blood Urea Nitrogen 18 mg/dL (6-20); Calcium 8.8 mg/dL (8.6-10.3); Carbon Dioxide 33 mEq/L (23-29); Chloride 100 mEq/L (98-107); Glucose 235 mg/dL (70-105); Osmolality,Calculated 297 (280-300); Potassium 4.7 mEq/L (3.5-5.1); Sodium 139 mEq/L (136-145); eGFR For African Americans > 60 (> 60); eGFR For Non-African Americans > 60 (> 60)
[2017-05-15] MEDS: Insulin LISPRO 300 UNITS/3 ML VIAL SQ SCH ×4 (08:36→23:34)
[2017-05-15] MEDS: MethylPREDNISolone 40 MG/ML VIAL IVP SCH (08:37)
[2017-05-15] MEDS: Azithromycin 250 MG TABLET PO SCH (08:37)
--- NOTE | 2017-05-15 09:45 | Internal Med Progress Note ---
<Ed Houston - Last Filed: 05/15/17 13:26> Date of Encounter: 05/15/17 Time of Encounter: 09:43 - Assessment and plan (1) Acute respiratory failure with hypoxia and hypercapnia Current Visit: Yes Status: Acute Assessment and plan: Acute hypoxic hypercapnic respiratory failure with acute respiratory acidosis secondary to acute COPD/asthma exacerbation due to sepsis from community- acquired pneumonia/unknown agent and also viral infections of influenza A (H3) and coronavirus HKU1. Chest x-ray on admission showed a left lower lobe opacity. Had a pH of 7.24 PCO2 of 76 and a PO2 of 55. patient is improving but continues to have diffuse wheezing. Sat O2 92% on 3L - ct Tamiflu day #4 - ct Rocephin and azithromycin day #4 - Continue Solu-Medrol IV, DuoNeb nebs, oxygen therapy - IS q1hr - started mucinex (2) Community acquired pneumonia Current Visit: Yes Status: Acute Qualifiers: Laterality: left Lung location: lower lobe of lung Qualified Code(s): J18.1 - Lobar pneumonia, unspecified organism (3) Sepsis Current Visit: Yes Status: Acute Assessment and plan: afebrile, no leukocytosis, normal rate. Qualifiers: Sepsis type: sepsis due to unspecified organism Qualified Code(s): A41.9 - Sepsis, unspecified organism (4) Acute respiratory acidosis Current Visit: Yes Status: Acute Assessment and plan: currently stable, continue supportive care (5) Hypoxia Current Visit: Yes Status: Acute Assessment and plan: continue supportive care (6) Asthma exacerbation Current Visit: Yes Status: Acute Assessment and plan: see above Qualifiers: Asthma severity: unspecified severity Asthma persistence: unspecified Qualified Code(s): J45.901 - Unspecified asthma with (acute) exacerbation (7) Diabetes Current Visit: Yes Status: Acute Assessment and plan: Insulin sliding scale. elevated BG is most likely from steroids Qualifiers: Diabetes mellitus type: type 2 Diabetes mellitus complication status: without complication Diabetes mellitus penitentiary insulin use: without penitentiary use Qualified Code(s): E11.9 - Type 2 diabetes mellitus without complications (8) DVT prophylaxis Current Visit: Yes Status: Acute Assessment and plan: heparin - Subjective Interval history: Ms Gill is a 56 yo female hospitalized for acute resp failure positive for coronavirus, influenza A, and possibly bacterial infection. Patient continues to report wheezing and SOB but does states she is improving. - Constitutional Vitals: Temp Pulse Resp BP Pulse Ox 98 F 77 18 146/79 97 05/15/17 07:00 05/15/17 07:00 05/15/17 07:54 05/15/17 07:00 05/15/17 07:54 General appearance: Present: cooperative, mild distress, A&O X 3, answers questions appropriately - Respiratory Respiratory exam: Present: prolonged expiratory phase, wheezes (diffuse). Absent: accessory muscle use, CTAB, respiratory distress - Cardiovascular Cardiovascular exam: Present: RRR, +S1, +S2. Absent: diastolic murmur, gallop, rubs, systolic murmur - Psychiatric Psychiatric exam: Present: normal affect, normal mood Internal Medicine: Result - Labs CBC & Chem 7: 05/15/17 07:47 05/15/17 07:47 Labs: Short CBC 05/15/17 Range/Units 07:47 WBC 5.6 D (4.3-11.1) K/mcL Hgb 11.4 L (11.5-15.4) g/dL Hct 35.7 (35.3-44.9) % Plt Count 139 L (140-400) K/mcL BMP 05/15/17 07:47 Sodium 139 Potassium 4.7 Chloride 100 Carbon Dioxide 33 H BUN 18 Creatinine 0.75 Glucose 235 H Calcium 8.8 - ABG Interpretation ABG results: ABG ABG pH 7.32 pH Units (7.32-7.45) 05/12/17 05:14 ABG pCO2 65 mmHg (35-45) H 05/12/17 05:14 ABG pO2 98 mmHg (85-104) D 05/12/17 05:14 ABG O2 Saturation 97 % (95-98) 05/12/17 05:14 Consult Discharge Plan - Plan Referrals: Josias Jc MD [Primary Care Provider] - <Dez Newby - Last Filed: 05/15/17 18:11> Date of Encounter: 05/15/17 - Assessment and plan (1) Acute respiratory failure with hypoxia and hypercapnia Current Visit: Yes Status: Acute (2) Influenza A Current Visit: Yes Status: Acute (3) Coronavirus infection Current Visit: Yes Status: Acute (4) Pneumonia Current Visit: Yes Status: Suspected Qualifiers: Pneumonia type: due to Pneumococcus Laterality: right Lung location: lower lobe of lung Qualified Code(s): J13 - Pneumonia due to Streptococcus pneumoniae (5) Asthma exacerbation Current Visit: Yes Status: Acute Qualifiers: Asthma severity: mild Asthma persistence: intermittent Qualified Code(s) : J45.21 - Mild intermittent asthma with (acute) exacerbation (6) Diabetes Current Visit: Yes Status: Acute Qualifiers: Diabetes mellitus type: type 2 Diabetes mellitus complication status: without complication Diabetes mellitus penitentiary insulin use: without machine long goods helper use Qualified Code(s): E11.9 - Type 2 diabetes mellitus without complications (7) Sepsis Current Visit: Yes Status: Resolved Qualifiers: Sepsis type: sepsis due to unspecified organism Qualified Code(s): A41.9 - Sepsis, unspecified organism - Constitutional Vitals: Temp Pulse Resp BP Pulse Ox 98.4 F 78 16 149/75 97 05/15/17 14:51 05/15/17 14:51 05/15/17 16:12 05/15/17 14:51 05/15/17 16:12 Internal Medicine: Result - Labs CBC & Chem 7: 05/15/17 07:47 05/15/17 07:47 Labs: Short CBC 05/15/17 Range/Units 07:47 WBC 5.6 D (4.3-11.1) K/mcL Hgb 11.4 L (11.5-15.4) g/dL Hct 35.7 (35.3-44.9) % Plt Count 139 L (140-400) K/mcL BMP 05/15/17 07:47 Sodium 139 Potassium 4.7 Chloride 100 Carbon Dioxide 33 H BUN 18 Creatinine 0.75 Glucose 235 H Calcium 8.8 - ABG Interpretation ABG results: ABG ABG pH 7.32 pH Units (7.32-7.45) 05/12/17 05:14 ABG pCO2 65 mmHg (35-45) H 05/12/17 05:14 ABG pO2 98 mmHg (85-104) D 05/12/17 05:14 ABG O2 Saturation 97 % (95-98) 05/12/17 05:14 - Attending Attestation I examined this patient and my medical decision-making was reviewed with the Resident Physician on 05/15/17. I agree with the documented findings, disposition and /treatment plan as described except to the extent set forth below. Ms Gill is currently admitted for hypoxic resp failure and influenza. She remains moderate to high risk due to potential for worsening clinical status. Ms Gill is feeling a little better but still quite dyspneic. No fever or chills. Still wheezing a lot today. Coughing and bringing up brownish sputum. Difficult to mobilize. Exam Alert. Comfortable Mucus membranes dry Heart reg Lungs with end exp wheeze Abd soft I/P 1. Hypoxia 2. Influenza Further diagnoses and plan as above.
[2017-05-15] MEDS: cefTRIAXone 2,000 MG in Water for inj. (sterile) 20 ML IVP SCH (12:00)
[2017-05-15] MEDS: predniSONE 20 MG TABLET PO SCH (18:02)
[2017-05-16] MEDS: *HR* Heparin 5,000 UNIT/ML VIAL SQ SCH (01:31)
[2017-05-16] MEDS: Ipratropium/Albuterol Neb 3 ML IH SCH ×3 (04:38→11:27)
[2017-05-16 05:39] LABS: Basophils # 0.1 K/mcL (0.0-0.2); Basophils % 1.4 %; Hematocrit 37.6 % (35.3-44.9); Hemoglobin 11.7 g/dL (11.5-15.4); Immature Granulocytes % 5.8 % (0-4); Lymphocytes # 0.6 K/mcL (0.6-4.6); Lymphocytes % 9.4 %; Mean Corpuscular HGB Conc 31.1 g/dL (31.6-35.5); Mean Corpuscular Hemoglobin 29.7 pg (28.0-33.3); Mean Corpuscular Volume 95.4 fL (83.0-100.0); Mean Platelet Volume 10.8 fL (9.4-12.4); Monocytes # 0.3 K/mcL (0.0-1.3); Monocytes % 5.8 %; Neutrophils # 4.5 K/mcL (1.6-8.9); Nucleated Red Blood Cells 0.7 /100 WBC (0); Platelet Count 153 K/mcL (140-400); Red Blood Count 3.94 M/mcL (3.82-4.97); Red Cell Distribution Width 13.6 % (11.5-14.5); Segmented Neutrophils % 77.6 %
[2017-05-16 05:51] LABS: BUN/Creatinine Ratio 21 (6-26); Blood Urea Nitrogen 17 mg/dL (6-20); Carbon Dioxide 36 mEq/L (23-29); Chloride 99 mEq/L (98-107); Glucose 204 mg/dL (70-105); Osmolality,Calculated 295 (280-300); Potassium 4.3 mEq/L (3.5-5.1); Sodium 139 mEq/L (136-145); eGFR For African Americans > 60 (> 60); eGFR For Non-African Americans > 60 (> 60)
[2017-05-16 06:02] LABS: Platelet Estimate Normal (Normal); Reactive Lymphocytes Present (Not Present); Toxic Granulation Present (Not Present)
[2017-05-16 06:03] LABS: Large Platelets Present (Not Present)
[2017-05-16 07:31] VITALS: BP 162/83
[2017-05-16] MEDS: predniSONE 20 MG TABLET PO SCH (08:45)
[2017-05-16] MEDS: Insulin LISPRO 300 UNITS/3 ML VIAL SQ SCH ×2 (08:46→14:08)
[2017-05-16] MEDS ORDERED: cefTRIAXone 1,000 MG in Water for inj. (sterile) 10 ML IVP SCH (09:00)
--- NOTE | 2017-05-16 11:35 | Discharge Summary ---
<Ed Houston - Last Filed: 05/16/17 14:32> Date of Encounter: 05/16/17 Time of Encounter: 11:33 - Discharge Diagnosis (1) Acute respiratory failure with hypoxia and hypercapnia Priority: Primary Status: Acute (2) Community acquired pneumonia Priority: Secondary Status: Acute Qualifiers: Laterality: left Lung location: lower lobe of lung Qualified Code(s): J18.1 - Lobar pneumonia, unspecified organism (3) Sepsis Priority: Secondary Status: Resolved Qualifiers: Sepsis type: sepsis due to unspecified organism Qualified Code(s): A41.9 - Sepsis, unspecified organism (4) Acute respiratory acidosis Priority: Secondary Status: Acute (5) Hypoxia Priority: Secondary Status: Acute (6) Asthma exacerbation Priority: Secondary Status: Acute Qualifiers: Asthma severity: mild Asthma persistence: intermittent Qualified Code(s) : J45.21 - Mild intermittent asthma with (acute) exacerbation (7) Diabetes Priority: Secondary Status: Acute Qualifiers: Diabetes mellitus type: type 2 Diabetes mellitus complication status: without complication Diabetes mellitus terminal gauger insulin use: without prison use Qualified Code(s): E11.9 - Type 2 diabetes mellitus without complications (8) DVT prophylaxis Priority: Secondary Status: Acute - Discharge Medications Home Medications: Budesonide/Formoterol 160/4.5 [Symbicort 160/4.5] 1 puff IH BIDR 05/11/17 [ History] Levalbuterol Tartrate [Levalbuterol Tartrate Hfa] 2 puff IH Q4-6H PRN 05/11/17 [ History] Lisinopril 2.5 mg PO DAILY 05/11/17 [History] Pravastatin Sodium 10 mg PO DAILY 05/11/17 [History] metFORMIN [Glucophage] 500 mg PO BID 05/11/17 [History] Allergies/Adverse Reactions: 3 Allergy/AdvReac Type Severity Reaction Status Date / Time aspirin Allergy Difficulty Verified 05/11/17 13:38 Breathing Date of admission: 05/11/17 18:38 Primary care physician: Josias Jc MD Consults: 05/11/17 20:16 Consult to Systems Manager [CONS] Routine Reason for SW Consult: Possibly sent on with home O2 - Patient Status Disposition: Home, Self-Care Condition: Good Functional capacity at discharge: independent ambulation Overall status at discharge: patient is progressing back to baseline - Discharge Instructions Instructions: Influenza (DC), Pneumonia (DC) Follow Up With: Josias Jc MD [Primary Care Provider] - - Diet and Activity Activity: increase activity as tolerated Hospital course: Ms. Gill is a 56 year old female w/ PMHx diabetes, HTN, and asthma was admitted for acute respiratory failure secondary to pneumonia and asthma exacerbation. Patient was found to be positive for Inflluenza and Coronavirus. Her symptoms started two days prior to her hospitalization. In the ED ABG pH 7.32, pCO2 65, pO2 98, HCO3 34. She was started on Tamiflu, Vanco, and Zosyn, and provided respiratory supportive care. Chest x-ray showed a left lower lobe opacity. On day 2 of admission patient was discontinued vancomycin and Zosyn, and started on Rocephin and azithromycin. Patient remained hemodynamically stable and clinically improved throughout hospitalization. Patient was discharged on day 6 of hospitalization. Patient to have follow up with PCP within 1 week of discharge. Patient's blood glucose remained elevated during hospitalization, recommended to have follow up and management with PCP after her infection clears. Time spent discussing smoking cessation with patient: more than 10 minutes - Time Spent with Patient Total time spent providing and/or coordinating discharge services: Greater than 30 minutes - Constitutional Vitals: Temp Pulse Resp BP Pulse Ox 98 F 77 16 162/83 97 05/16/17 07:23 05/16/17 07:23 05/16/17 11:28 05/16/17 07:23 05/16/17 11:28 General appearance: Present: cooperative, mild distress, A&O X 3, answers questions appropriately - Respiratory Respiratory exam: Present: wheezes. Absent: accessory muscle use, decreased breath sounds, CTAB, prolonged expiratory phase, respiratory distress, tachypnea - Cardiovascular Cardiovascular exam: Present: RRR, +S1, +S2. Absent: diastolic murmur, gallop, rubs, systolic murmur - GI/Abdominal GI/Abdominal exam: Present: normal bowel sounds, soft, no peritoneal signs. Absent: distended, tenderness - Psychiatric Psychiatric exam: Present: normal affect, normal mood <Dez Newby - Last Filed: 05/16/17 19:40> Date of Encounter: 05/16/17 - Discharge Diagnosis (1) Acute respiratory failure with hypoxia and hypercapnia Status: Acute (2) Influenza A Priority: Primary Status: Acute (3) Coronavirus infection Priority: Primary Status: Acute (4) Pneumonia Priority: Primary Status: Suspected Qualifiers: Pneumonia type: due to Pneumococcus Laterality: right Lung location: lower lobe of lung Qualified Code(s): J13 - Pneumonia due to Streptococcus pneumoniae (5) Asthma exacerbation Status: Acute Qualifiers: Asthma severity: mild Asthma persistence: intermittent Qualified Code(s) : J45.21 - Mild intermittent asthma with (acute) exacerbation (6) Diabetes Status: Acute Qualifiers: Diabetes mellitus type: type 2 Diabetes mellitus complication status: without complication Diabetes mellitus prison insulin use: without terminal gauger use Qualified Code(s): E11.9 - Type 2 diabetes mellitus without complications (7) Sepsis Status: Resolved Qualifiers: Sepsis type: sepsis due to unspecified organism Qualified Code(s): A41.9 - Sepsis, unspecified organism Date of admission: 05/11/17 18:38 Primary care physician: Josias Jc MD Consults: 05/11/17 20:16 Consult to Systems Manager [CONS] Routine Reason for SW Consult: Possibly sent on with home O2 Hospital course: Ms. Gill is a 56 year old female - Time Spent with Patient Total time spent providing and/or coordinating discharge services: 38min - Constitutional Vitals: Temp Pulse Resp BP Pulse Ox 98 F 77 16 162/83 97 05/16/17 07:23 05/16/17 07:23 05/16/17 11:28 05/16/17 07:23 05/16/17 11:28 - Attending Attestation I examined this patient and my medical decision-making was reviewed with the Resident Physician on 05/16/17. I agree with the documented findings, disposition and treatment plan as described except to the extent set forth below. Ms Gill has been admitted for hypoxic resp failure due to influenza and asthma. She is now afebrile with stable vitals. She is ready for discharge home. She has qualified for oxygen at this time. Exam Alert. Comfortable Mucus membranes dry Heart reg Less wheeze today Plan d/c home.
[2017-05-17] MEDS ORDERED: predniSONE 10 MG TABLET PO SCH (09:00)
== END 2017-05-16 15:58 | disposition home or self-care (01) | DRG 871 ==
LOC: EMEROO 13:36 → 2NENU 18:38 → SUATTDRO 18:38 → 2NENU 19:06
PROVIDERS: ADMIT Nurse Practitioner; ATTEND Internal Medicine